=== PATIENT | male | born 1955 | race Caucasian/White ===

== ENCOUNTER 2018-03-14 15:31 | Emergency (ER) | payer OTHER ==
[2018-03-14] MEDS ORDERED: NA CHLORIDE 0.9% 1,000 ML ONE (16:40)
[2018-03-14] MEDS ORDERED: ONDANSETRON 4 MG/2 ML VIAL ONE (16:41)
[2018-03-14] MEDS ORDERED: FAMOTIDINE 20 MG/2 ML VIAL IV ONE (16:41)
--- NOTE | 2018-03-14 16:43 | RAD REPORT ---
EXAM DESCRIPTION: RAD - Chest Single View - 03/14/2018 4:22 pm CLINICAL HISTORY: Weight loss, decreased appetite, history of squamous cell carcinoma COMPARISON: Portable chest April 2017, CT chest angio study April 2017 TECHNIQUE: AP portable chest image was obtained 1614 hours . FINDINGS: Lungs are extensively fibrotic. There is flattened diaphragm on the left. There is elevati on and tenting of the right hemidiaphragm. Postsurgical clips are present with elevation of the right hilum. The fullness of the right hilum is similar to prior imaging. This is a summation of scarred p arenchyma and normal vasculature. Chest mass or lymphadenopathy are not suspected. Heart and vasculat ure are normal. No measurable pleural effusion and no pneumothorax. No gross bony abnormality seen. N o acute aortic findings suspected. IMPRESSION: Underlying COPD and right lobectomy surgical changes similar to prior imaging. No acute infiltrates seen and no suspicion for developing mass or lymphadenopathy.
[2018-03-14 16:52] LABS: Absolute Lymphocytes (CBC) 2.9 K/uL (0.7-4.9); Absolute Neutrophil 8.9 K/uL (1.8-8.0); Basophils % 0.7 % (0-1.3); Eosinophils % 0.8 % (0-4.4); Hematocrit 44.8 % (39.6-49.0); Lymphocytes % 22.5 % (15.3-44.8); MCH 29.7 pg (27.0-35.0); MCV 90.2 fL (80-100); MPV 6.8 fL (7.6-11.3); Monocytes % 7.6 % (3.3-12.3); RBC Red Blood Cell Count 4.97 M/uL (4.33-5.43)
[2018-03-14 17:01] LABS: Bicarbonate 28 mEq/L (21-31); Glucose Level 99 mg/dL (65-120); Lipase 19 U/L (22-51); Potassium 3.8 mEq/L (3.6-5.0); Sodium Level 136 mEq/L (135-145)
[2018-03-14 17:08] LABS: ALT/SGPT 15 IU/L (10-60); AST/SGOT 16 IU/L (10-42); Albumin 4.7 g/dL (3.2-5.5); Alkaline Phosphatase 84 IU/L (42-121); Amylase Level 51 U/L (28-100); BUN Blood Urea Nitrogen 10 mg/dL (6-20); Bilirubin Direct 0.1 mg/dL (0-0.2); Bilirubin Total 0.9 mg/dL (0.3-1.2); Protein, Total 7.7 g/dL (6.0-8.3)
[2018-03-14] MEDS ORDERED: PROMETHAZINE 25 MG/ML VIAL ONE (17:09)
--- NOTE | 2018-03-14 17:37 | EKG ---
Test Date: 2018-03-14 Test Time: 16:18:55 Urologist Physician: KAVIN MEASUREMENT RESULTS: Intervals: Rate: 95 NH: 146 QRSD: 92 QT: 366 QTc: 459 Stewart: P: 84 NH: 146 QRS: 39 T: 74 INTERPRETIVE STATEMENTS: Normal sinus rhythm Right atrial enlargement Borderline ECG Compared to ECG 04/25/2017 21:45:51 Atrial abnormality now present Sinus tachycardia no longer present Myocardial infarct finding no longer present Electronically Signed On 03-14-18 17:36:37 CDT by Emanuel León
--- NOTE | 2018-03-14 19:17 | RAD REPORT ---
EXAM DESCRIPTION: CTAbdomen Pelvis W Contrast - 03/14/2018 7:01 pm CLINICAL HISTORY: Abdominal pain. COMPARISON: 04/25/2017 TECHNIQUE: Biphasic CT imaging of the abdomen and pelvis was performed with 100 ml non-ionic IV cont rast. All CT scans are performed using dose optimization technique as appropriate and may include automated exposure control or mA/KV adjustment according to patient size. FINDINGS: The inferior lung marte are emphysematous. The liver, spleen, pancreas, adrenal glands and kidneys are within normal limits. Cholecystectomy cli ps. No bowel obstruction, free air, free fluid or abscess. Large amount of stool is present rectal vault. The appendix is normal. Aortic atherosclerosis is noted. No evidence of significant lymphadenopathy. No suspicious bony findings. IMPRESSION: No acute intra-abdominal or pelvic finding. Prominent emphysema.
[2018-03-14 19:19] LABS: Urine Bacteria <20 /HPF (NONE SEEN); Urine Culture Reflex Order NOT NEEDED; Urine RBC <5 /HPF (NONE SEEN)
[2018-03-14] MEDS ORDERED: LIDOCAINE VISCOUS 2% SOLN 15 ML UDC ONE (19:31)
[2018-03-14] MEDS ORDERED: MAGNE/ALUM HYDROXD 30 ML UCUP ONE (19:31)
--- NOTE | 2018-03-14 20:31 | EDPHYS ---
Physician Documentation [facility] Name: Olvin Yeh Age: 62 yrs Sex: Male : 1955 Arrival Date: 03/14/2018 Time: 15:34 Bed 19 Private MD: None, None ED Physician eNil Damico HPI: 03/14 16:15 This 62 yrs old Male presents to ER via Wheelchair with complaints of cp Confusion, Decreased Appetite. 16:15 Onset: The symptoms/episode began/occurred gradually. cp 16:15 The patient presents to the emergency department with nausea, that is moderate, cp vomiting, that is intermittent, abdominal pain. 16:15 Possible causes: history of lung cancer. Associated signs and symptoms: Pertinent cp positives: anorexia, weight loss, decreased appetite, Pertinent negatives: constipation, diarrhea, fever, GI bleeding. Severity of symptoms: in the emergency department the symptoms are unchanged despite home interventions. Patient reports having recent appt with oncologists and pet scan. Historical: - Allergies: 15:44 No Known Allergies; ph - PMHx: 15:44 COPD; Emphysema; lung cancer- L upper lung removed possibly; ph - PSHx: 15:44 lung sx from cancer; ph - Immunization history:: Adult Immunizations up to date. - Social history:: Smoking status: Patient/guardian denies using tobacco. - Ebola Screening: : No symptoms or risks identified at this time. ROS: 16:20 Constitutional: Positive for poor PO intake, weight loss, Negative for body aches, cp chills, fever. 16:20 Eyes: Negative for injury, pain, redness, and discharge. cp 16:20 ENT: Negative for drainage from ear(s), ear pain, sore throat, difficulty swallowing, difficulty handling secretions. 16:20 Cardiovascular: Negative for chest pain, edema, palpitations. 16:20 Respiratory: Negative for cough, shortness of breath, wheezing. 16:20 Abdomen/GI: Positive for abdominal pain, nausea and vomiting, anorexia, Negative for diarrhea, constipation, dysphagia, black/tarry stool, rectal bleeding. 16:20 : Negative for urinary symptoms. 16:20 Skin: Negative for cellulitis, rash. 16:20 Neuro: Negative for altered mental status, dizziness, headache, syncope, visual changes, weakness. 16:20 All other systems are negative. Exam: 16:25 ECG was reviewed by the Attending Physician. cp 16:27 Constitutional: The patient appears in no acute distress, alert, awake, cp non-diaphoretic, non-toxic, well developed, well nourished. 16:27 Head/Face: Normocephalic, atraumatic. Eyes: Pupils equal round and reactive to light, cp extra-ocular motions intact. Lids and lashes normal. Conjunctiva and sclera are non-icteric and not injected. Cornea within normal limits. Periorbital areas with no swelling, redness, or edema. 16:27 ENT: External ear(s): are unremarkable, Ear canal(s): are normal, clear, TM's: bulging, is not appreciated, bilaterally, dullness, bilaterally, erythema, is not appreciated, bilaterally, Nose: is normal, Mouth: Lips: dry, Oral mucosa: dry, Posterior pharynx: is normal, airway is patent, no erythema, no exudate. 16:27 Neck: ROM/movement: is normal, is supple, without pain, no range of motions limitations, no meningismus, no nuchal rigidity. 16:27 Chest/axilla: Inspection: normal, Palpation: is normal, no crepitus, no tenderness. 16:27 Cardiovascular: Rate: tachycardic, Rhythm: regular, Pulses: Pulses are 2+ in right radial artery and left radial artery. Edema: is not appreciated, JVD: is not appreciated. 16:27 Respiratory: the patient does not display signs of respiratory distress, Respirations: normal, no use of accessory muscles, no retractions, no splinting, no tachypnea, labored breathing, is not present, Breath sounds: are clear throughout, no stridor, no wheezing. 16:27 Abdomen/GI: Inspection: abdomen appears normal, Bowel sounds: active, all quadrants, Palpation: soft, in all quadrants, moderate abdominal tenderness, in all quadrants. 16:27 Back: pain, is absent, ROM is normal. 16:27 Musculoskeletal/extremity: Exam is negative for calf tenderness, decreased range of motion, edema. 16:27 Skin: cellulitis, is not appreciated, no rash present. 16:27 Neuro: Orientation: to person, place \T\ time. Mentation: lucid, able to follow commands, Cerebellar function: is grossly normal, Motor: moves all fours, strength is normal, Sensation: no obvious gross deficits. Vital Signs: 15:42 BP 103 / 78; Pulse 103; Resp 20; Temp 98.8(TE); Pulse Ox 96% on R/A; Weight 54.43 kg; ph Height 5 ft. 11 in. (180.34 cm); 16:55 BP 137 / 93; Pulse 100; Resp 18; Pulse Ox 99% on R/A; Pain 5/10; iw 18:08 BP 128 / 73; Pulse 93; Resp 18; Pulse Ox 97% on R/A; em 19:12 BP 142 / 95; Pulse 91; Resp 18 S; Pulse Ox 97% on R/A; jd3 20:59 BP 132 / 82; Pulse 87; Resp 18 S; Pulse Ox 96% on R/A; Pain 5/10; jd3 15:42 Body Mass Index 16.74 (54.43 kg, 180.34 cm) ph MDM: 15:52 Patient medically screened. cp 17:00 Differential diagnosis: gastritis, cholecystitis, pancreatitis, appendicitis, cp diverticulitis, viral gastroenteritis, gastroenteritis, dehydration, electrolyte abnormality. 20:30 Data reviewed: vital signs, nurses notes, lab test result(s), EKG, radiologic studies, cp CT scan, plain films. 20:30 Differential diagnosis: bronchitis, pneumonia UTI, gastroenteritis. Response to cp treatment: the patient's symptoms have markedly improved after treatment, VSS. Nausea and pain markedly improved. Vomiting resolved and patient observed tolerating po fluids. 03/14 16:07 Order name: Amylase, Serum; Complete Time: 17:35 cp 03/14 16:07 Order name: Basic Metabolic Panel; Complete Time: 17:35 cp 03/14 16:07 Order name: CBC with Diff; Complete Time: 17:01 cp 03/14 20:29 Interpretation: Normal except: WBC 13.0; MPV 6.8; NEUT A 8.9. cp 03/14 16:07 Order name: Creatinine for Radiology; Complete Time: 17:35 cp 03/14 16:07 Order name: Hepatic Function; Complete Time: 17:35 cp 03/14 16:07 Order name: Lipase; Complete Time: 17:35 cp 03/14 16:07 Order name: XRAY Chest (1 view); Complete Time: 17:01 cp 03/14 16:07 Order name: Urine Microscopic Only; Complete Time: 19:20 cp 03/14 19:20 Interpretation: Reviewed. cp 03/14 16:09 Order name: Troponin I; Complete Time: 17:35 cp 03/14 16:33 Order name: CT Abd/Pelvis - W/Contrast: may give oral contrast; Complete Time: 19:19 cp 03/14 19:13 Order name: Urine Dipstick--Ancillary (enter results) rg2 03/14 16:07 Order name: IV Saline Lock; Complete Time: 16:55 cp 03/14 16:07 Order name: Labs collected and sent; Complete Time: 16:55 cp 03/14 16:07 Order name: Urine Dipstick-Ancillary (obtain specimen); Complete Time: 18:57 cp 03/14 16:09 Order name: EKG; Complete Time: 16:09 cp 03/14 16:09 Order name: EKG - Nurse/Tech; Complete Time: 16:27 cp 03/14 19:19 Order name: PO challenge; Complete Time: 19:54 cp EC: Rate is 95 beats/min. Rhythm is regular. WI interval is normal. QRS interval is normal. cp QT interval is normal. No ST changes noted. Interpreted by me. Reviewed by me. Administered Medications: 16:50 Drug: NS 0.9% 1000 ml Route: IV; Rate: 1 bolus; Site: right antecubital; em 17:49 Follow up: IV Status: Completed infusion; IV Intake: 1000ml em 16:54 Drug: Zofran 4 mg Route: IVP; Site: right antecubital; iw 17:49 Follow up: Response: No adverse reaction em 16:54 Drug: Pepcid 20 mg Route: IVP; Site: right antecubital; iw 17:49 Follow up: Response: No adverse reaction em 17:20 Drug: Phenergan 25 mg Route: IVP; Site: right antecubital; iw 17:49 Follow up: Response: No adverse reaction; Nausea is decreased em 19:36 Drug: GI Cocktail without - (Maalox Suspension 30 ml, Lidocaine Liquid 2 % 15 jd3 ml) Route: PO; 21:19 Follow up: Response: No adverse reaction jd3 Disposition: 03/14/18 20:30 Discharged to Home. Impression: Upper abdominal pain, unspecified, Nausea and vomiting. - Condition is Stable. - Discharge Instructions: Abdominal Pain, Adult, Nausea and Vomiting. - Prescriptions for Carafate 1 gram Oral Tablet - take 1 tablet by ORAL route 4 times per day take on an empty stomach, beginning on waking and last dose at bedtime. dissolve tablet in warm water prior to ingestion; 100 tablet. Protonix 40 mg Oral Tablet - take 1 tablet by ORAL route once daily; 30 tablet. promethazine 25 mg Oral Tablet - take 1 tablet by ORAL route every 6 hours As needed; 20 tablet. - Medication Reconciliation Form, Thank You Letter, Antibiotic Education, Prescription Opioid Use form. - Follow up: Trang Latham MD; When: 2 - 3 days; Reason: Recheck today's complaints. - Problem is new. - Symptoms have improved. Addendum: 03/18/2018 09:12 Co-signature as Attending Physician, Neil Damico MD I agree with the assessment and c almaguer plan of care. Signatures: Dispatcher [employer] Neil Lepe MD MD cha Munoz, Edgar, CRAB BACKER CRAB BACKER em Nerissa Jain RN RN iw Yamini Jaquez RN RN ph Neil Hurst, LUKE PA Blas Palacios RN RN jd3 Corrections: (The following items were deleted from the chart) 03/14 20:29 20:29 Normal except: WBC 13.0; MPV 6.8. cp cp 21:19 20:30 03/14/2018 20:30 Discharged to Home. Impression: Upper abdominal pain, jd3 unspecified; Nausea and vomiting. Condition is Stable. Forms are Medication Reconciliation Form, Thank You Letter, Antibiotic Education, Prescription Opioid Use. Follow up: Trang Latham; When: 2 - 3 days; Reason: Recheck today's complaints. Problem is new. Symptoms have improved. cp
--- NOTE | 2018-03-14 20:31 | ER ---
Nurse's Notes [facility] Name: Olvin Yeh Age: 62 yrs Sex: Male : 1955 Arrival Date: 03/14/2018 Time: 15:34 Bed 19 Private MD: None, None Diagnosis: Upper abdominal pain, unspecified;Nausea and vomiting Presentation: 03/14 15:38 Presenting complaint: Patient states: " I lost some weight and my appetite hasn't been ph good. 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 Transition of care: patient was not received from another setting of care. Onset of symptoms was March 14, 2018. Risk Assessment: Do you want to hurt yourself or someone else? Patient reports no desire to harm self or others. Initial Sepsis Screen: Does the patient meet any 2 criteria? HR > 90 bpm. Does the patient have a suspected source of infection? No. Patient's initial sepsis screen is negative. Care prior to arrival: None. 15:38 Method Of Arrival: Wheelchair ph 15:38 Acuity: TENA 3 ph Historical: - Allergies: 15:44 No Known Allergies; ph - PMHx: 15:44 COPD; Emphysema; lung cancer- L upper lung removed possibly; ph - PSHx: 15:44 lung sx from cancer; ph - Immunization history:: Adult Immunizations up to date. - Social history:: Smoking status: Patient/guardian denies using tobacco. - Ebola Screening: : No symptoms or risks identified at this time. Screenin:57 Abuse screen: Denies threats or abuse. Nutritional screening: No deficits noted. iw Tuberculosis screening: No symptoms or risk factors identified. Fall Risk None identified. Assessment: 16:00 General: Appears in no apparent distress. uncomfortable, ill, malnourished, Behavior is em calm, cooperative. Pain: Complains of pain in right upper quadrant and left upper quadrant Pain currently is 5 out of 10 on a pain scale. Neuro: Level of Consciousness is awake, alert, obeys commands, Oriented to person, place, time, situation. Cardiovascular: Capillary refill < 3 seconds Patient's skin is warm and dry. Respiratory: Airway is patent Respiratory effort is even, unlabored, Respiratory pattern is regular, symmetrical. GI: Abdomen is flat, Bowel sounds present X 4 quads. Reports nausea, vomiting. : No signs and/or symptoms were reported regarding the genitourinary system. EENT: No signs and/or symptoms were reported regarding the EENT system. Derm: Skin is intact, Skin is pink, warm \\T\\ dry. Musculoskeletal: Range of motion: intact in all extremities. 16:10 Reassessment: Patient appears in no apparent distress at this time. I agree with above iw assessment by Alec Stroud LVN. 17:10 Reassessment: pt actively vomiting, Neil PA notified, new orders received. em 17:20 Reassessment: Patient appears in no apparent distress at this time. finished PO em contrast, tolerated well, CT notified. 17:30 Reassessment: Patient appears in no apparent distress at this time. Florentin (son) called em and wanted to know if pt would be admitted or discharged, contact information [phone]. 17:50 Reassessment: Patient appears in no apparent distress at this time. Patient and/or em family updated on plan of care and expected duration. Pain level reassessed. Patient is alert, oriented x 3, equal unlabored respirations, skin warm/dry/pink. 18:35 Reassessment: Patient appears in no apparent distress at this time. Patient and/or em family updated on plan of care and expected duration. Pain level reassessed. Patient is alert, oriented x 3, equal unlabored respirations, skin warm/dry/pink. 19:11 Reassessment: Patient appears in no apparent distress at this time. Patient and/or jd3 family updated on plan of care and expected duration. Pain level reassessed. Patient is alert, oriented x 3, equal unlabored respirations, skin warm/dry/pink. pt reporting relief from nausea. General: Appears in no apparent distress. uncomfortable, Behavior is calm, cooperative. Neuro: Level of Consciousness is awake, alert, obeys commands, Oriented to person, place, time, situation. Respiratory: Airway is patent Respiratory effort is even, unlabored, Respiratory pattern is regular, symmetrical. GI: Abdomen is flat, Patient currently denies nausea. 20:15 Reassessment: Patient appears in no apparent distress at this time. Patient and/or jd3 family updated on plan of care and expected duration. Pain level reassessed. Patient is alert, oriented x 3, equal unlabored respirations, skin warm/dry/pink. 21:00 Reassessment: Patient appears in no apparent distress at this time. Patient and/or jd3 family updated on plan of care and expected duration. Pain level reassessed. Patient is alert, oriented x 3, equal unlabored respirations, skin warm/dry/pink. 21:17 Reassessment: Patient appears in no apparent distress at this time. Patient and/or jd3 family updated on plan of care and expected duration. Pain level reassessed. Patient is alert, oriented x 3, equal unlabored respirations, skin warm/dry/pink. pt reported understanding of discharge instructions, pt assisted to front entrance with wheelchair. Vital Signs: 15:42 BP 103 / 78; Pulse 103; Resp 20; Temp 98.8(TE); Pulse Ox 96% on R/A; Weight 54.43 kg; ph Height 5 ft. 11 in. (180.34 cm); 16:55 BP 137 / 93; Pulse 100; Resp 18; Pulse Ox 99% on R/A; Pain 5/10; iw 18:08 BP 128 / 73; Pulse 93; Resp 18; Pulse Ox 97% on R/A; em 19:12 BP 142 / 95; Pulse 91; Resp 18 S; Pulse Ox 97% on R/A; jd3 20:59 BP 132 / 82; Pulse 87; Resp 18 S; Pulse Ox 96% on R/A; Pain 5/10; jd3 15:42 Body Mass Index 16.74 (54.43 kg, 180.34 cm) ph ED Course: 15:34 Patient arrived in ED. mr 15:34 None, None is Private Physician. mr 15:42 Triage completed. ph 15:44 Arm band placed on. ph 15:52 Neil Hurst PA is PHCP. cp 15:52 Neil Damico MD is Attending Physician. cp 16:10 Alec Stroud LVN is Primary Nurse. em 16:20 XRAY Chest (1 view) In Process Unspecified. EDMS 16:26 EKG done, by husbandry technician. reviewed by Neil BUTLER. 3 16:27 X-ray completed. Portable x-ray completed in exam room. Patient tolerated procedure mh1 well. 16:40 No provider procedures requiring assistance completed. Initial lab(s) drawn, by me, iw sent to lab. Inserted saline lock: 20 gauge in right antecubital area, using aseptic technique. Blood collected. 17:33 Patient has correct armband on for positive identification. em 18:[address] via stretcher. mw3 18:57 CT completed. Patient tolerated procedure well. mw3 19:01 Patient moved back from CT. mw3 19:01 CT Abd/Pelvis - W/Contrast: may give oral contrast In Process Unspecified. EDMS 19:59 Primary Nurse role handed off by Alec Stroud LVN rg2 20:29 Trang Latham MD is Referral Physician. cp 20:59 Blas Martines, KETURAH is Primary Nurse. jd3 21:17 IV discontinued, intact, bleeding controlled, No redness/swelling at site. Pressure jd3 dressing applied. Administered Medications: 16:50 Drug: NS 0.9% 1000 ml Route: IV; Rate: 1 bolus; Site: right antecubital; em 17:49 Follow up: IV Status: Completed infusion; IV Intake: 1000ml em 16:54 Drug: Zofran 4 mg Route: IVP; Site: right antecubital; iw 17:49 Follow up: Response: No adverse reaction em 16:54 Drug: Pepcid 20 mg Route: IVP; Site: right antecubital; iw 17:49 Follow up: Response: No adverse reaction em 17:20 Drug: Phenergan 25 mg Route: IVP; Site: right antecubital; iw 17:49 Follow up: Response: No adverse reaction; Nausea is decreased em 19:36 Drug: GI Cocktail without - (Maalox Suspension 30 ml, Lidocaine Liquid 2 % 15 jd3 ml) Route: PO; 21:19 Follow up: Response: No adverse reaction jd3 Intake: 17:49 IV: 1000ml; Total: 1000ml. em Outcome: 20:30 Discharge ordered by . cp 21:16 Discharged to home via wheelchair. jd3 21:16 Condition: stable 21:16 Discharge instructions given to patient, Instructed on discharge instructions, follow up and referral plans. medication usage, Demonstrated understanding of instructions, follow-up care, medications, Prescriptions given X 3. 21:19 Patient left the ED. jd3 Signatures: Dispatcher [employer] EDJeffrey Tanner rg2 Iman Gage mr Gustavo, Nani 1 Alec Stroud, Nerissa Kwon LVN, RN RN Yamini Wood RN RN Neil Vivas PA PA cp Davies, Jonathon, RN RN jd3 Kaylah Marion 3 Aure Mendieta 3
[2018-03-14 22:12] LABS: Urine Blood NEGATIVE (NEG); Urine Glucose NEGATIVE (NEG); Urine Protein NEGATIVE (NEG); Urine Specific Gravity 1.015 (1.005-1.030); Urine pH 7.5 (5.0-7.0)
== END 2018-03-14 21:19 | disposition home or self-care (01) ==
LOC: ER 15:31
DX: R10.10 Upper abdominal pain, unspecified (principal); Z85.118 Personal history of other malignant neoplasm of bronchus and lung
CPT/HCPCS: 36415; 71045; 74177; 80048; 80076; 81003; 81015; 82150; 83690; 84484; 85025; 93005; 96361; 96374; 96375; 99284; J2405; J2550; J7030; Q9967